=== PATIENT | male | born 1980 | race Caucasian/White ===

== ENCOUNTER 2024-11-13 01:10 | Emergency (ER) | payer MEDICAID ==
[~2024-11-13] VITALS: Ht 175.3 cm; Wt 102.1 kg
[2024-11-13] MEDS ORDERED: OXYMETAZOLINE NASAL 0.05% 15 ML SPRAY NS ONE (02:24)
[2024-11-13] MEDS: OXYMETAZOLINE NASAL 0.05% 15 ML SPRAY NS ONE (02:31)
[2024-11-13 02:37] VITALS: BP 144/93; O2SAT 97
== END 2024-11-13 02:37 | disposition home or self-care (01) ==
LOC: ER 01:21
DX: R04.0 Epistaxis (principal); Z79.82 Long term (current) use of aspirin
CPT/HCPCS: A4606; A4663